=== PATIENT | male | born 1945 | race African-American/Black ===

== ENCOUNTER → 2018-01-15 | Outpatient (CLI) | payer OTHER ==
--- NOTE | 2018-01-15 19:00 | Diagnostic Imaging Report ---
Bone Scan, delayed phase INDICATION: 71 M with prostate cancer; restaging COMPARISON: Most recent prior bone scan 02/14/2017 REPORT: Approximately 3 hours following intravenous administration of 25 mCi of Tc-99m MDP, delayed total body images in the anterior and posterior projections and selected spot images were obtained. Today's study is unchanged in appearance compared to the prior bone scan of 02/14/2017. Again multiple foci of increased tracer activity are seen in the thoracolumbar spine, bilateral ribs, left shoulder, right scapula, left sacral ala and right lesser trochanter. Otherwise, distribution of tracer activity is unremarkable throughout the skeletal system. No abnormal accumulation of tracer is seen in the soft tissues or urinary tract. IMPRESSION: Stable metastatic bone disease in the spine, thorax, pelvis and right proximal femur when compared to the prior bone scan of 02/14/2017. No new lesions are identified. Signed by: Dr. Aline Ceja M.D. on 01/15/2018 6:57 PM
== END ==
LOC: NM 10:47
PROVIDERS: ATTEND Pathology Anatomic Pathology & Clinical Pathology
DX: C61 Malignant neoplasm of prostate (principal)
CPT/HCPCS: 78306; A9503

== ENCOUNTER → 2018-06-17 | Outpatient (CLI) | payer OTHER ==
[~2018-06-17] MED LIST: IOPAMIDOL 370 MG/ML 200 ML INFUS..BTL INJ ONE; SODIUM CHLORIDE 0.9% 50ML 50 ML ONE
[2018-06-17 08:46] LABS: BLOOD UREA NITROGEN 21 mg/dL (7-26); BUN/CREATININE RATIO 18 (6-25); CREATININE, SERUM 1.17 mg/dL (0.72-1.25); EST GLOMERULAR FILTRATION RATE > 60 ML/MIN (60-)
--- NOTE | 2018-06-17 11:56 | Diagnostic Imaging Report ---
PROCEDURE: CT ABDOMEN AND PELVIS WITH CONTRAST TECHNIQUE: The abdomen and pelvis were scanned utilizing a multidetector helical scanner from the diaphragm to the lesser trochanter after the IV administration of 100 cc of Isovue 370 and the oral administration of 900 cc of Gastrografin. Coronal and sagittal multiplanar reformations were obtained. COMPARISON: CT Abdomen/Pelvis 02/14/17. INDICATIONS: PROSTATE CANCER, NEOPLASM FINDINGS: LOWER THORAX: Normal. HEPATOBILIARY: Unchanged subcentimeter left hepatic lobe lesions, too small to characterize. No new focal hepatic lesions. No biliary ductal dilatation. SPLEEN: No splenomegaly. PANCREAS: No focal masses or ductal dilatation. ADRENALS: No adrenal nodules. KIDNEYS/URETERS: No hydronephrosis, stones, or solid mass lesions. Stable subcentimeter hypodensity in the left kidney, too small to characterize, but likely representing a cyst. PELVIC ORGANS/BLADDER: Prostatic protrusion of the prostate into the inferior aspect of the bladder. Prostate measures up to 4 cm and contains dystrophic calcifications, as before. PERITONEUM / RETROPERITONEUM: No free air or fluid. LYMPH NODES: No lymphadenopathy. Stable 6 mm left para-aortic lymph node. VESSELS: Atherosclerotic calcifications of the abdominal aorta and branch vessels. Again noted is moderate atherosclerotic plaque in the left common femoral artery with approximately 40 % luminal narrowing. GI TRACT: No distention or wall thickening. Mild fecalization of ileal loops without bowel distension, which could reflect slow transit of enteric contents. Normal appendix. BONES AND SOFT TISSUES: Diffuse sclerotic metastatic disease is again noted. No evidence of fracture. IMPRESSION: History of prostate cancer. Stable diffuse osseous metastatic disease. No evidence of new sites of disease in the abdomen or pelvis. Dictated by: KINSEY MORGAN M.D. on 06/17/2018 at 12:03 Electronically approved by: KINSEY MORGAN M.D. on 06/17/2018 at 12:03
--- NOTE | 2018-06-17 16:39 | Diagnostic Imaging Report ---
Bone Scan, delayed phase INDICATION: 72 M with prostate cancer metastatic to bone COMPARISON: Most recent prior bone scans 01/15/2018 and 02/14/2017 REPORT: Approximately 3.5 hours following intravenous administration of 27 mCi of Tc-99m MDP, delayed total body images in the anterior and posterior projections and selected spot images were obtained. Today's study is unchanged in appearance compared to the prior bone scans of 01/15/2018 and 02/14/2017. Again multiple foci of increased tracer activity are seen in the thoracolumbar spine, bilateral ribs, left shoulder, right scapula, left sacral ala and right lesser trochanter. Otherwise, distribution of tracer activity is unremarkable throughout the skeletal system. No abnormal accumulation of tracer is seen in the soft tissues or urinary tract. IMPRESSION: Stable metastatic bone disease in the spine, thorax, pelvis and right proximal femur when compared to the prior bone scans of 01/15/2018 and 02/14/2017. No new lesions are identified. Signed by: Dr. Aline Ceja M.D. on 06/17/2018 4:36 PM
== END ==
LOC: NM 08:12
PROVIDERS: ATTEND Family Medicine
DX: C61 Malignant neoplasm of prostate (principal)
CPT/HCPCS: 36415; 74177; 78306; 82565; 84520; A9503; Q9967

== ENCOUNTER → 2019-02-27 | Outpatient (CLI) | payer MEDICARE ==
--- NOTE | 2019-02-27 16:59 | Diagnostic Imaging Report ---
Bone Scan, delayed phase INDICATION: Metastatic prostate cancer metastatic to bone COMPARISON: Most recent prior bone scan 06/17/2018 REPORT: Approximately 3 hours following intravenous administration of 27.5 mCi of Tc-99m MDP, delayed total body images in the anterior and posterior projections and selected spot images were obtained. Appearance of today's study is unchanged when compared to the prior study of 06/17/2018. Multiple foci of increased tracer activity are seen in the thoracolumbar spine, multiple ribs, left shoulder, right scapula, left SI joint and right lesser trochanter. Otherwise, distribution of tracer activity is unremarkable throughout the skeletal system. No abnormal accumulation of tracer is seen in the soft tissues or urinary tract. IMPRESSION: Stable metastatic bone disease involving the spine, thorax, pelvis and proximal right femur compared to the prior bone scan of 06/17/2018. No new metastatic lesions are identified. Signed by: Dr. Aline Ceja M.D. on 02/27/2019 4:56 PM
== END ==
LOC: NM 08:05
PROVIDERS: ATTEND Internal Medicine Medical Oncology
DX: C79.51 Secondary malignant neoplasm of bone (principal); Z85.46 Personal history of malignant neoplasm of prostate
CPT/HCPCS: 78306; A9503

== ENCOUNTER → 2021-03-21 | Outpatient (CLI) | payer MEDICARE ==
[~2021-03-21] MED LIST changes: -IOPAMIDOL 370 MG/ML 200 ML INFUS..BTL INJ ONE; +REGADENOSON 0.4 MG/5 ML SYR IV ONE; -SODIUM CHLORIDE 0.9% 50ML 50 ML ONE
== END ==
LOC: NM 12:06
PROVIDERS: ATTEND Nurse Practitioner Family
DX: I20.8 Other forms of angina pectoris (principal)
CPT/HCPCS: 78452; 93017; A9502; J2785